=== PATIENT | female | born 1995 | race Asian ===

== ENCOUNTER → 2025-04-27 15:23 | Outpatient (CLI) | payer OTHER, SELFPAY ==
[2025-04-30 22:12] LABS: QuantiFERON Mitogen Value >10.00 IU/mL (.); QuantiFERON Nil Value 0.03 IU/mL (.); QuantiFERON TB Gold Plus Negative (Negative); QuantiFERON TB1 Ag Value 0.04 IU/mL (.); QuantiFERON TB2 Ag Value 0.05 IU/mL (.)
== END ==
LOC: LAB 15:25
PROVIDERS: PCP Family Medicine
DX: Z02.1 Encounter for pre-employment examination (principal)
CPT/HCPCS: 86480; 86787